=== PATIENT | male | born 1930 | race Caucasian/White ===

== ENCOUNTER 2016-10-06 09:47 | Emergency (ER) | payer MEDICARE ==
--- NOTE | 2016-10-06 10:38 | ED ---
Fall HPI - General Source: patient, EMS Mode of arrival: EMS Limitations: altered mental status (Dementia) <Joel Escobar - Last Filed: 10/06/16 11:23> <Matt Osborne - Last Filed: 10/06/16 11:43> - General Chief Complaint: Fall Stated Complaint: FALL Time Seen by Provider: 10/06/16 10:21 - History of Present Illness Initial Comments: 86-year-old male presents emergency department via EMS for a fall. Patient fell striking his right shoulder, right knee. Patient had no head or neck pain denies any head injury no LOC. Patient states is fully able to ambulate and move his right shoulder though it's mildly uncomfortable. Patient had no chest pain or syncopal episodes. Patient denies any nausea vomiting. Patient offers no complaints. (Joel Escobar) - Related Data Home Medications Medication Instructions Recorded Confirmed Acetaminophen Tab [Tylenol Tab] 1,000 mg PO BID 10/06/16 10/06/16 Alogliptin Benzoate [Nesina] 25 mg PO AC-BRKFST 10/06/16 10/06/16 Finasteride [Proscar] 5 mg PO PC-LUNCH 10/06/16 10/06/16 Meloxicam 15 mg PO HS 10/06/16 10/06/16 Memantine HCl [Namenda Xr] 28 mg PO HS 10/06/16 10/06/16 Sertraline [Zoloft] 50 mg PO HS 10/06/16 10/06/16 Simvastatin [Zocor] 10 mg PO HS 10/06/16 10/06/16 Wheat Dextrin [Benefiber] 1 pack PO PC-TID 10/06/16 10/06/16 metFORMIN HCL [Glucophage] 1,000 mg PO PC-BID 10/06/16 10/06/16 Allergies Allergy/AdvReac Type Severity Reaction Status Date / Time No Known Allergies Allergy Verified 10/06/16 10:06 Review of Systems ROS Other: All systems not noted in ROS Statement are negative. <Joel Escobar - Last Filed: 10/06/16 11:23> ROS Other: All systems not noted in ROS Statement are negative. <Matt Osborne - Last Filed: 10/06/16 11:43> ROS Statement: Those systems with pertinent positive or pertinent negative responses have been documented in the HPI. Past Medical History Past Medical History: Dementia, Diabetes Mellitus, Hyperlipidemia History of Any Multi-Drug Resistant Organisms: Unobtainable Past Surgical History: Unable to Obtain Past Psychological History: Unable to Obtain Smoking Status: Unknown if ever smoked Past Alcohol Use History: Unable to Obtain Past Drug Use History: Unable to Obtain <Joel Escobar - Last Filed: 10/06/16 11:23> General Exam Limitations: altered mental status (Dementia) General appearance: alert, in no apparent distress Head exam: Present: atraumatic, normocephalic, normal inspection Eye exam: Present: normal appearance, PERRL, EOMI. Absent: scleral icterus, conjunctival injection, periorbital swelling ENT exam: Present: normal exam, normal oropharynx, mucous membranes moist Neck exam: Present: normal inspection, full ROM. Absent: tenderness, meningismus, lymphadenopathy Respiratory exam: Present: normal lung sounds bilaterally. Absent: respiratory distress, wheezes, rales, rhonchi, stridor, chest wall tenderness Cardiovascular Exam: Present: regular rate, normal rhythm, normal heart sounds. Absent: systolic murmur, diastolic murmur, rubs, gallop, clicks GI/Abdominal exam: Present: soft, normal bowel sounds. Absent: distended, tenderness, guarding, rebound, rigid Extremities exam: Present: other (Minimal right shoulder tenderness, full range of motion, equal strength bilaterally upper extremities, right knee mild tenderness no ecchymosis no abrasions full range of motion no laxity negative anterior posterior drawer pulses equal bilaterally) Back exam: Present: normal inspection, full ROM. Absent: tenderness Neurological exam: Present: alert, CN II-XII intact Skin exam: Present: warm, dry, intact, normal color, other (No areas of ecchymosis or abrasions noted). Absent: rash <Joel Escobar - Last Filed: 10/06/16 11:23> Course <Joel Escobar - Last Filed: 10/06/16 11:23> <Matt Osborne - Last Filed: 10/06/16 11:43> Vital Signs 10/06/16 09:50 Temperature 99.2 F Pulse Rate 74 Respiratory 18 Rate Blood Pressure 160/72 O2 Sat by Pulse 95 Oximetry - Reevaluation(s) Reevaluation #1: 10/06/16 11:43 I did personally do a [id number] examination of this patient did discuss findings with him also. His x-rays negative for acute findings outpatient MRI was recommended. Currently palpation is minimal discomfort/ pain with no step- off no crepitation he does demonstrate full range of motion. X-rays are negative at this time again for any acute fractures or subluxations (Matt Osborne) Medical Decision Making <Joel Escobar - Last Filed: 10/06/16 11:23> <Matt Osborne - Last Filed: 10/06/16 11:43> - Medical Decision Making 6-year-old male present emergency department for fall. Patient's x-ray of the shoulder, chest and right knee were reviewed. They do recommend MRI of the right knee to rule out costochondritis. Patient was informed of this. Patient will be discharged. (Joel Escobar) Disposition Time of Disposition: 11:25 <Joel Escobar - Last Filed: 10/06/16 11:23> <Matt Osborne - Last Filed: 10/06/16 11:43> Clinical Impression: Fall, Right knee pain, Right shoulder pain Disposition: HOME SELF-CARE Condition: Stable Instructions: Knee Pain (ED) Additional Instructions: Please follow up outpatient for MRI of the knee.Please return to the Emergency Department if symptoms worsen or any other concerns. Referrals: None,Stated [Primary Care Provider] - 1-2 days Jose C Layton MD [STAFF PHYSICIAN] - 1-2 days
--- NOTE | 2016-10-06 11:09 | XR ---
EXAMINATION TYPE: XR knee complete RT DATE OF EXAM: 10/06/2016 10:55 AM COMPARISON: NONE HISTORY: Pain FINDINGS: Narrowing of the medial compartment of the knee joint and patellofemoral joint. Vascular calcificatio ns noted. Deformity of the medial femoral condyle. Findings suggestive of osteochondritis dissecans. Osseous structures are intact. No acute fracture seen. Diffuse osteopenia noted. IMPRESSION: 1. Recommend MRI to assess for osteochondritis of the medial femoral condyle.
--- NOTE | 2016-10-06 11:10 | XR ---
EXAMINATION TYPE: XR shoulder complete RT DATE OF EXAM: 10/06/2016 10:55 AM COMPARISON: NONE HISTORY: Pain The osseous structures are intact. There is no acute fracture or dislocation. The AC joint is narro wed with hypertrophic change. Diffuse osteopenia noted. IMPRESSION: 1. No acute process. 2. Severe AC joint arthropathy. Correlate for chronic rotator cuff disease.
--- NOTE | 2016-10-06 11:11 | XR ---
EXAMINATION TYPE: XR chest 1V DATE OF EXAM: 10/06/2016 10:55 AM COMPARISON: NONE HISTORY: Pain TECHNIQUE: Single frontal view of the chest is obtained. FINDINGS: There is no focal air space opacity, pleural effusion, or pneumothorax seen. The cardiac silhouette size is within normal limits. The osseous structures are intact. Atherosclerotic change of the aorta. IMPRESSION: 1. No acute process.
[2016-10-06 13:16] VITALS: BP 154/70; PULSE 72; RESP 17; TEMP 98.7
== END 2016-10-06 13:14 | disposition home or self-care (01) ==
LOC: EC 09:47
DX: M25.511 Pain in right shoulder (principal); M25.561 Pain in right knee; M12.811 Other specific arthropathies, not elsewhere classified, right shoulder; F03.90 Unspecified dementia, unspecified severity, without behavioral disturbance, psychotic disturbance, mood disturbance, and anxiety; E11.9 Type 2 diabetes mellitus without complications; E78.5 Hyperlipidemia, unspecified; Z79.84 Long term (current) use of oral hypoglycemic drugs; Z79.899 Other long term (current) drug therapy; W19.XXXA Unspecified fall, initial encounter
CPT/HCPCS: 71010; 99284